=== PATIENT | female | born 1990 | race Caucasian/White ===

== ENCOUNTER 2016-12-18 12:02 | Emergency (ER) | payer OTHER ==
[~2016-12-18] VITALS: Ht 165.1 cm; Wt 77.4 kg
[~2016-12-18 12:02] MED LIST: FERR1TAB62 MT; PRENTAB26 PO
[2016-12-18 12:09] VITALS: TEMP 36.6; Ht 165.1 cm; Wt 77.4 kg
[2016-12-18 12:29] VITALS: O2SAT 100
[2016-12-18 12:44] LABS: BASO ABS # 0.07 K/uL (0-0.2); COMPLETE YES; EOS % 1.8 %; HEMATOCRIT 41.2 % (37-47); IG% 0.1 %; LYMPH % 35.8 %; LYMPH ABS # 2.45 K/uL (1.2-3.4); MEAN CORPUSCULAR HEMOGLOBIN 30.3 pg (25-34); MEAN CORPUSCULAR HGB CONC 34.5 g/dl (32-36); MEAN PLATELET VOLUME 11.5 fL (7.4-10.4); MONO % 6.6 %; NEUT % 54.7 %; PLATELET COUNT 241 K/uL (130-400); RED BLOOD COUNT 4.68 M/uL (4.2-5.4); WHITE BLOOD COUNT 6.84 K/uL (4.8-10.8)
[2016-12-18 12:55] LABS: BUN/CREATININE RATIO 11.2 (10-20); CALCIUM 9.4 mg/dl (8.5-10.1); CREATININE 0.83 mg/dl (0.60-1.20); POTASSIUM 3.7 mmol/L (3.5-5.1)
[2016-12-18 12:56] LABS: PARTIAL THROMBOPLASTIN RATIO 1.1; PROTHROMBIN TIME (PATIENT) 11.2 SECONDS (9.0-12.0)
[2016-12-18 13:06] LABS: THYROID STIMULATING HORMONE 1.58 uIu/ml (0.300-4.500)
[2016-12-18 13:07] LABS: URINE APPEARANCE CLEAR (CLEAR); URINE BILIRUBIN NEG (NEG); URINE COLOR YELLOW; URINE NITRITE NEG (NEG); URINE SPECIFIC GRAVITY 1.021 (1.000-1.030); UROBILINOGEN NEG (NEG)
[2016-12-18 13:11] LABS: MANUAL MICROSCOPIC REQUIRED? NO; REVIEW REQ? NO
[2016-12-18 13:36] LABS: BENZODIAZEPINE, URINE NEG (NEG); COCAINE,URINE NEG (NEG); PHENCYCLIDINE, URINE NEG (NEG)
--- NOTE | 2016-12-18 14:11 | DIAGNOSTIC IMAGING REPORT ---
CHEST 2 VIEWS ROUTINE CLINICAL HISTORY: sob eval for pnea dyspnea COMPARISON STUDY: 04/26/2014 FINDINGS: The bones soft tissues and hemidiaphragms are normal. The cardiomediastinal silhouette is normal. The lungs are clear. The pulmonary vasculature is normal. IMPRESSION: Negative chest. Electronically signed by: Jovan Lowery M.D. 12/18/2016 2:09 PM Dictated Date/Time: 12/18/2016 2:09 PM
[2016-12-18 14:30] VITALS: BP 121/74; PULSE 93; O2SAT 97
--- NOTE | 2016-12-18 18:19 | EMERGENCY ROOM VISIT NOTE ---
History Report prepared by Sukumar: Alireza Sullivan Under the Supervision of: Dr. Denny Escobar M.D. First contact with patient: 12:28 Chief Complaint: RAPID HEART RATE Stated Complaint: HEART FAST , SOB Nursing Triage Summary: pt reports intermittent chest racing. gets sob when it happens pt reports unable to catch breath. denies any past cardiac hx History of Present Illness The patient is a 26 year old female who presents to the Emergency Room with complaints of an intermittent fast heart rate that started yesterday. She says that she has episodes where her heart feels like it is racing, and then it will stop, and she will feel almost like her heart stops for a little bit. At that moment she feels short of breath. Currently, she says that she feels like her heart rate is a little fast. During the episodes, she feels a bit of brief chest discomfort, which she describes as a tightness. The patient denies any fevers, cold symptoms, abdominal pain, vomiting, diarrhea, leg pain, or leg swelling. She is not on control, and she has not had any recent long trips. The patient denies any chance of . She has no history of clots in her lungs or legs. The patient denies any thyroid issues, and has not had any recent unintentional weight loss or thinning of her hair. 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 Source of History: patient Onset: Yesterday Position: other (heart) Quality: other (feels like heart is racing) Timing: intermittent, other Associated Symptoms: + SOB (intermittent), No abdominal pain, No diarrhea, No fevers, No vomiting Note: Associated symptoms: Intermittent chest tightness. Denies cold symptoms, leg pain, leg swelling. Review of Systems See HPI for pertinent positives & negatives. A total of 10 systems reviewed and were otherwise negative. Past Medical & Surgical Medical Problems: (1) No chronic problems (2) Tuberculosis Family History Cancer Diabetes mellitus Heart disease Hypertension Lung disease Social History Smoking Status: Never Smoker Smokeless Tobacco Use: No Alcohol Use: occasionally Marital Status: in relationship Housing Status: lives with family Occupation Status: employed Current/Historical Medications No Active Prescriptions or Reported Meds Allergies Coded Allergies: Amoxicillin (Verified Allergy, Unknown, HIVES, 12/18/16) Sulfa Drugs (Verified Allergy, Unknown, HIVES, 12/18/16) Physical Exam Vital Signs Date Time Temp Pulse Resp B/P Pulse Ox O2 Delivery O2 Flow Rate FiO2 12/18/16 14:30 93 16 121/74 97 Room Air 12/18/16 13:47 99 18 114/80 100 Room Air 12/18/16 12:30 114 12/18/16 12:29 100 Room Air 12/18/16 12:09 36.6 124 20 163/114 98 Room Air Physical Exam Constitutional: Vital signs reviewed. Eyes: Pupils are equal round reactive to light. Conjunctiva are noninjected. ENT: Pharynx is clear without erythema or exudate. Mucous membranes are moist. Neck supple without meningeal signs. No thyromegaly. Respiratory: Clear to auscultation bilaterally. Breath sounds are equal bilaterally. Cardiovascular: Tachycardic heart rate at 131, regular rhythm. No rubs or gallops. GI: Soft, nondistended and nontender. Bowel sounds are present. Musculoskeletal: No peripheral edema. No lower extremity tenderness. Integumentary: No cyanosis. Neurological: The patient is awake and alert. No focal deficits. Psychiatric: Normal affect. Medical Decision & Procedures ER Provider Diagnostic Interpretation: X-ray results as stated below per interpretation by me and the radiologist: CHEST 2 VIEWS ROUTINE CLINICAL HISTORY: sob eval for pnea dyspnea COMPARISON STUDY: 04/26/2014 FINDINGS: The bones soft tissues and hemidiaphragms are normal. The cardiomediastinal silhouette is normal. The lungs are clear. The pulmonary vasculature is normal. IMPRESSION: Negative chest. Electronically signed by: Jovan Lowery M.D. 12/18/2016 2:09 PM Dictated Date/Time: 12/18/2016 2:09 PM Laboratory Results 12/18/16 12:25 Red Blood Count 4.68, Mean Corpuscular Volume 88.0, Mean Corpuscular Hemoglobin 30.3, Mean Corpuscular Hemoglobin Concent 34.5, Mean Platelet Volume 11.5, Neutrophils (%) (Auto) 54.7, Lymphocytes (%) (Auto) 35.8, Monocytes (%) (Auto) 6.6, Eosinophils (%) (Auto) 1.8, Basophils (%) (Auto) 1.0, Neutrophils # (Auto) 3.74, Lymphocytes # (Auto) 2.45, Monocytes # (Auto) 0.45, Eosinophils # (Auto) 0.12, Basophils # (Auto) 0.07 12/18/16 12:25 Test 12/18/16 12:25 12/18/16 12:43 12/18/16 12:50 White Blood Count 6.84 K/uL (4.8-10.8) Red Blood Count 4.68 M/uL (4.2-5.4) Hemoglobin 14.2 g/dL (12.0-16.0) Hematocrit 41.2 % (37-47) Mean Corpuscular Volume 88.0 fL (80-100) Mean Corpuscular Hemoglobin 30.3 pg (25-34) Mean Corpuscular Hemoglobin Concent 34.5 g/dl (32-36) Platelet Count 241 K/uL (130-400) Mean Platelet Volume 11.5 fL (7.4-10.4) Neutrophils (%) (Auto) 54.7 % Lymphocytes (%) (Auto) 35.8 % Monocytes (%) (Auto) 6.6 % Eosinophils (%) (Auto) 1.8 % Basophils (%) (Auto) 1.0 % Neutrophils # (Auto) 3.74 K/uL (1.4-6.5) Lymphocytes # (Auto) 2.45 K/uL (1.2-3.4) Monocytes # (Auto) 0.45 K/uL (0.11-0.59) Eosinophils # (Auto) 0.12 K/uL (0-0.5) Basophils # (Auto) 0.07 K/uL (0-0.2) RDW Standard Deviation 42.2 fL (36.4-46.3) RDW Coefficient of Variation 13.1 % (11.5-14.5) Immature Granulocyte % (Auto) 0.1 % Immature Granulocyte # (Auto) 0.01 K/uL (0.00-0.02) Prothrombin Time 11.2 SECONDS (9.0-12.0) Prothromb Time International Ratio 1.0 (0.9-1.1) Activated Partial Thromboplast Time 27.6 SECONDS (21.0-31.0) Partial Thromboplastin Ratio 1.1 Anion Gap 8.0 mmol/L (3-11) Est Creatinine Clear Calc Drug Dose 107.5 ml/min Estimated GFR () 114.4 Estimated GFR (Non- 98.7 BUN/Creatinine Ratio 11.2 (10-20) Calcium Level 9.4 mg/dl (8.5-10.1) Thyroid Stimulating Hormone (TSH) 1.580 uIu/ml (0.300-4.500) Free Thyroxine 1.32 ng/dl (0.80-1.60) Bedside D-Dimer 335 ng/mlFEU (0-450) Bedside Troponin I 0.000 ng/ml (0-0.045) Urine Color YELLOW Urine Appearance CLEAR (CLEAR) Urine pH 5.0 (4.5-7.5) Urine Specific [place] 1.021 (1.000-1.030) Urine Protein NEG (NEG) Urine Glucose (UA) NEG (NEG) Urine Ketones NEG (NEG) Urine Occult Blood 1+ (NEG) Urine Nitrite NEG (NEG) Urine Bilirubin NEG (NEG) Urine Urobilinogen NEG (NEG) Urine Leukocyte Esterase NEG (NEG) Urine WBC (Auto) 1-5 /hpf (0-5) Urine RBC (Auto) 0-4 /hpf (0-4) Urine Hyaline Casts (Auto) 1-5 /lpf (0-5) Urine Epithelial Cells (Auto) 10-20 /lpf (0-5) Urine Bacteria (Auto) NEG (NEG) Urine Test NEG (NEG) Urine Opiates Screen NEG (NEG) Urine Methadone, Qualitative NEG (NEG) Urine Barbiturates NEG (NEG) Urine Phencyclidine (PCP) Level NEG (NEG) Ur Amphetamine/Methamphetamine NEG (NEG) MDMA (Ecstasy) Screen NEG (NEG) Urine Benzodiazepines Screen NEG (NEG) Urine Cocaine Metabolite NEG (NEG) Urine Marijuana (THC) NEG (NEG) Laboratory results as reviewed by me. ECG Indication: SOB/dyspnea Rate (beats per minute): 131 Rhythm: sinus tachycardia Findings: no ectopy, other (no ST elevations) ED Course 1230: The patient was evaluated in room B6. A complete history and physical exam was performed. 1437: I reevaluated the patient and reviewed the test results with her. I explained to her that because she has no risk factors and had a low risk for a pulmonary embolus with a negative D-dimer, I did not feel that a CT scan was indicated. The patient's heart rate is in the 90sa and she is asymptomatic. I recommended follow-up with a doctor next week for a possible echocardiogram and event monitor. The patient verbally expressed understanding and agreement of the treatment plan. The patient will be discharged. Medical Decision This is a 26-year-old female who presents with palpitations with some mild chest discomfort and shortness of breath. Differential diagnosis metabolic derangement, hyperthyroidism, electrolyte abnormality, dysrhythmia, pulmonary embolism. I did perform a limited focused review of portions of the patient's old chart on the electronic medical record. The patient has had no recent pertinent visits to this hospital. I did evaluate the patient as noted above. The patient has had several intermittent episodes of tachycardia since last night. They are associated with brief episodes of shortness of breath and some chest tightness. Currently she feels a little bit tachycardic but denies any chest pain or shortness of breath. IV access was established. The patient was placed on a continuous child monitor. I did order and personally review the patient's 12-lead EKG and chest x-ray as described above. Her twelve-lead EKG shows sinus tachycardia but is otherwise unremarkable. Her chest x-ray is unremarkable as well. I did order and review the patient's blood work as noted in the electronic medical record. Electrolytes and TFTs are unremarkable. I did Reassess the patient. She is asymptomatic at this time. Her heart rate is normal. I did discuss the test results with the patient and recommended further outpatient workup including possible event monitor and echocardiogram. The patient was discharged in good condition and told to return for any worsening symptoms as well as avoid any caffeine or stimulants. Impression Primary Impression: Tachycardia Scribe Attestation The scribe's documentation has been prepared under my direct and personally reviewed by me in its entirety. I confirm that the note above accurately reflects all work, treatment, procedures, and medical decision making performed by me. Departure Information Dispostion Home / Self-Care Prescriptions No Active Prescriptions or Reported Meds Referrals No Doctor, Assigned (PCP) Forms HOME CARE DOCUMENTATION FORM, IMPORTANT VISIT INFORMATION, WORK / SCHOOL INSTRUCTIONS Patient Instructions ED Palpitations, My [facility] Additional Instructions You have been examined and treated today on an emergency basis only. This is not a substitute for, or an effort to provide, complete comprehensive medical care. It is impossible to recognize and treat all injuries or illnesses in a single emergency department visit. It is therefore important that you follow up closely with your physician. Call as soon as possible for an appointment. Your doctor may consider a Holter monitor or echocardiogram for further workup. Return for worsening symptoms or if you develop fever, vomiting, chest pain or any other concerning symptoms. Avoid caffeine or other stimulants.
[2017-02-16] MEDS ORDERED: CATALYST PO (07:38)
[2017-02-16] MEDS ORDERED: [UNRECOGNIZED DRUG - OTHER] PO (07:38)
[2017-02-16] MEDS ORDERED: LPR50X PO (07:38)
[2017-02-16] MEDS ORDERED: METO25TA3 PO ×2 (08:09→09:18)
== END 2016-12-18 14:46 | disposition home or self-care (01) ==
LOC: C.EDB 12:03
DX: R00.0 Tachycardia, unspecified (principal); Z83.3 Family history of diabetes mellitus; Z82.49 Family history of ischemic heart disease and other diseases of the circulatory system

== ENCOUNTER → 2017-02-16 | Outpatient (CLI) | payer OTHER ==
[~2017-02-16] VITALS: Ht 165.1 cm; Wt 72.0 kg
[2017-02-16] VITALS (10 sets, daily range): BP systolic 118–143; BP diastolic 59–76; PULSE 77–102; TEMP 36.8; O2SAT 98–100; Ht 165.1 cm; Wt 72.0 kg
[~2017-02-16] MED LIST changes: +BENZOCAIN/TETRACA/BUTAM SPRAY 200 APPLN/20 GM SPRY ONE; +CANNULA ONE; +CATALYST PO; +FENTANYL CITRATE INJ 50 MCG/1 ML 2 ML VIAL ONE; -FERR1TAB62 MT; +LPR50X PO; +METO25TA3 PO; +MIDAZOLAM HCL 1 MG/ML 2ML VIAL ONE; -PRENTAB26 PO; +[UNRECOGNIZED DRUG - OTHER] PO
--- NOTE | 2017-02-16 08:30 | Procedure Note ---
Pre-Mod Sedation Assessment General Date of Moderate Sedation: Feb 16, 2017. Vital Signs: Vital Signs Past 12 Hours Date Time Temp Pulse Resp B/P (MAP) Pulse Ox O2 Delivery O2 Flow Rate FiO2 02/16/17 07:41 36.8 93 16 122/76 98 Room Air Review Cardiovascular: regular rate, rhythm Abdomen: non tender, soft Lungs: lungs clear Pre-Sedation Airway Assessment Oral Cavity: WNL Short Thick Neck: No Hx of Sleep Apnea: No Smoking Status: Never Smoker Procedure Planning Contraindications-for Mod Sed: None Yes Notes The planned sedation has been discussed with the patient and consent obtained. I have identified the patient, determined the appropriateness of sedation and have assessed the patient immediately prior to the procedure. All medicine(s) and interventions are by my order.
--- NOTE | 2017-02-16 08:53 | HISTORY & PHYSICAL EXAMINATION ---
DATE OF ADMISSION: 02/16/2017 TIME: 8:26 a.m. CHIEF COMPLAINTS: Here for transesophageal echo. HISTORY OF PRESENT ILLNESS: Ms. Barrett is a very pleasant 26-year-old female who is here today for transesophageal echo. She presented to the outpatient office on 01/01/2017 for sinus tachycardia, and near syncope. She had an echocardiogram done on 01/14/2017 which demonstrated normal LV systolic function. 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 There was trace aortic regurgitation. To have a closer evaluation of this finding, a transesophageal echo was ordered. From a sinus tachycardia standpoint. Her symptoms are much better controlled on metoprolol succinate 50 mg daily. She still has symptoms occasionally with near syncope lasting only a few seconds. Her heart rate at home is mostly 80s-90s. She has been consistently in the 90s and the lower 100s while awaiting today's test. She has not missed a dose of her medication. REVIEW OF SYSTEMS: As above. PAST MEDICAL HISTORY: 1. Sinus tachycardia. 2. History of tuberculosis status post treatment. HOME MEDICATIONS: Include: Metoprolol succinate 50 mg daily. ALLERGIES: SULFA AND AMOXICILLIN. SOCIAL HISTORY: No tobacco, alcohol or drug abuse. She has 1 daughter. Her friend Dana accompanies her today and is her ride home. PHYSICAL EXAMINATION: VITAL SIGNS: Heart rate mostly 90s to low 100s, currently in 80s, oxygen saturation 100%, blood pressure 125/62 mmHg. GENERAL: No acute distress. She is alert and oriented. NECK: No JVD. CARDIAC: No ventricular heave. Regular, normal S1, S2. No audible murmurs, rubs or gallops. LUNGS: Clear to auscultation bilaterally without wheezes, rales or rhonchi. ABDOMEN: Soft, nontender, nondistended. Normoactive bowel sounds. EXTREMITIES: No cyanosis or edema. PSYCHIATRIC: Affect appears appropriate. ASSESSMENT AND PLAN: 1. 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 2. Sinus tachycardia with near syncope: We will likely increase metoprolol succinate to 75 mg daily as she has noted improvement with escalating doses of metoprolol, but continues to have symptoms periodically. 3. Disposition: She will be discharged home following transesophageal echo. Her friend Dana will drive her home.
--- NOTE | 2017-02-16 09:17 | Procedure Note ---
Post-Mod Sedation Assessment General Date of Moderate Sedation Feb 16, 2017. Vital Signs: Vital Signs Past 12 Hours Date Time Temp Pulse Resp B/P (MAP) Pulse Ox O2 Delivery O2 Flow Rate FiO2 02/16/17 09:09 84 14 130/61 (84) 98 Room Air 02/16/17 08:58 110 11 133/92 (106) 100 Nasal Cannula 2 02/16/17 07:41 36.8 93 16 122/76 98 Room Air Review - Discharge Criteria Vital Signs Stable: Yes Alert/Oriented/Conversant: Yes Returned to Baseline Mental St: Yes Nausea Absent/Minimal: Yes Pain/Discomfort/Absent/Minimal: Yes Normal/Baseline Respirations: Yes Active Bleeding?: No
--- NOTE | 2017-02-16 09:19 | Discharge Instructions ---
Discharge Instructions Date of Service Feb 16, 2017. Visit Reason for Visit: Aortic Valve Disease Discharge Discharge Diagnosis / Problem: No significant valvular abnormalities. Sinus tachycardia. Discharge Goals Goal(s): Diagnostic testing Activity Recommendations Activity Limitations: per Instructions/Follow-up section Anesthesia . Post Anesthesia Instructions: If you have had General Anesthesia or IV Sedation: * Do not drive today. * Resume driving when surgeon permits. * Do not make important decisions or sign legal documents today. * Call surgeon for: 1. Temperature elevations greater than 101 degrees F. 2. Uncontrollable pain. 3. Excessive bleeding. 4. Persistent nausea and vomiting. 5. Medication intolerance (nausea, vomiting or rash). * For nausea and vomiting use only clear liquids such as: tea, soda, bouillon until nausea subsides, then gradually increase diet as tolerated. * If you have any concerns or questions, call your surgeon's office. If physician is unavailable and it is an emergency, call 911 or go to the nearest emergency room. . Instructions / Follow-Up Instructions / Follow-Up ACTIVITY RECOMMENDATIONS: Resume activities as tolerated with no limitations unless specified. __ No lifting over _10_ pounds for 24 hours. __ Do not engage in vigorous exercise, sexual activity, or sports for 24 hours. __ Do not drive or operate any motorized equipment for 24 hours. __ You may return to work/school tomorrow. __ Nothing to eat or drink until gag reflex returns. __ No HOT or WARM liquids for _8_ hours. __ Avoid "scratchy" foods such as potato chips or pretzels for 24 hours following procedure. SPECIAL CARE: If you experience coughing up or vomiting of blood, contact 911 Diet Recommendations Recommended Home Diet: resume previous diet Procedures Procedures Performed: Transesophageal echocardiogram. Pending Studies Studies pending at discharge: no Medical Emergencies . Who to Call and When: Medical Emergencies: If at any time you feel your situation is an emergency, please call 911 immediately. . Non-Emergent Contact Non-Emergency issues call your: Primary Care Provider, Paint Supervisor . . "Provider Documentation" section prepared by Tej Harry. .
--- NOTE | 2017-02-16 09:21 | Cardiology Procedure Brief Nt ---
Preliminary Cardiology Note Procedure Date Feb 16, 2017. Pre-Procedure Diagnosis Aortic valve disorder Post-Procedure Diagnosis No significant aortic valve pathology. Sinus tachycardia. Procedure(s) Performed LUÍS Car Repair Supervisor Edilson Triple Valve Tester(s) Aide Castellanos Estimated Blood Loss none Preliminary Findings No significant valvular abnormalities. Recommendations Continue to follow up with cardiology as scheduled. Titrate metoprolol for symptomatic sinus tachycardia. Specimens none Disposition
--- NOTE | 2017-02-16 10:31 | TEE ---
*NOTICE TO RECEIVING LIBERTARIAN AGENCY This information is strictly Confidential and protected under [place] law. [place] law prohibits you from making any further disclosure of this information unless further disclosure is expressly permitted by the written consent of the person to whom it pertains or is authorized by law. A general authorization for the release of medical or other information is not sufficient for this purpose. Hospital accepts no responsibility if the information is made available to any other person, INCLUDING THE PATIENT. Interpretation Summary * Name: RO CHAAVRRIA Study Date: 02/16/2017 07:24 AM BP: 133/92 mmHg * Patient Location: [facility] HR: 92 * : 1990 (M/d/yyyy) Gender: Female Height: 65 in * Age: 26 yrs Ethnicity: [place] Weight: 160 lb * Ordering Physician: Tej Waggoner MD * Performed By: Aide Castellanos * * Reason For Study: AORTIC VALVE DISEASE * BSA: 1.8 m2 * Sedation start time cath 8:26 a.m.. * Patient and time at 8:57 a.m.. I * -- Conclusions -- * LUÍS: * 1. Normal left ventricular size and systolic function. EF 55-60%. No regional wall motion abnormalities. No left ventricular hypertrophy. * 2. No significant valvular abnormalities. * 3. No visualized ASD or PFO. * 4. Patient tolerated procedure well without known complication. Procedure Details * The transesophageal portion of this study was personally supervised by the undersigned interpreting physician. * LUÍS Probe #2 utilized for procedure. * The study was performed in Cardiopulmonary Department. * Time out was conducted by the physician, nurse, and telemetry technician with positive identification of patient and procedure. * Informed consent for Transesophageal Echocardiogram was obtained prior to the procedure. * An intravenous line was placed. A topical anesthetic agent was used for oropharangeal anesthesia. A bite block was inserted. * The patient's vital signs, including blood pressure, heart rate, pulse oximetry and cardiac rhythm were monitored throughout the procedure . * Midazolam 4 mg administered for sedation. * Fentanyl 100 mcg was administered for procedural sedation. * The posterior oropharynx was anesthetized using a topical anesthetic spray. A bite guard was inserted. * A multifrequency, multiplane transesopheageal echocardiographic endoscope was inserted and manipulated in the standard fashion to achieve multiplane views. * The transesophageal probe was passed without difficulty. * The usual views were obtained; basal, mid-esophageal, transgastric and aortic views. * The patient tolerated the procedure well without evidence of orophangeal or esophageal trauma. * A 2D transesophageal echocardiogram with spectral and color flow Doppler was performed. * Contrast injection with agitated saline was performed. * A 2D transesophageal echocardiogram was performed. * A 2D transesophageal echocardiogram with color flow Doppler was performed. * A 2D transesophageal echocardiogram with Doppler and color flow Doppler was performed. Left Ventricle * Normal left ventricular size and systolic function. EF 55-60%. No regional wall motion abnormalities. No left ventricular hypertrophy. Right Ventricle * The right ventricle is normal in size and function. Atria * The left atrial size is normal. * No thrombus is detected in the left atrial appendage. * Right atrial size is normal. * No visualized ASD or PFO via 2D imaging or color Doppler. There is no evidence of right to left inter atrial shunt following agitated saline injection. Mitral Valve * The mitral valve is normal in structure and function. * There is no mitral valve stenosis. * There is trace mitral regurgitation. Tricuspid Valve * The tricuspid valve is normal in structure and function. * There is no tricuspid stenosis. * There is trace tricuspid regurgitation. Aortic Valve * The aortic valve is trileaflet. * The aortic valve is normal in structure and function. * The aortic valve opens well. * No aortic regurgitation is present. Pulmonic Valve * The pulmonary valve is inadequately visualized, but the Doppler data is adequate for interpretation. * There is no significant pulmonary regurgitation. Great Vessels * The aortic root is normal size. * Ascending aorta of normal dimension * No significant atherosclerosis noted in thoracic aorta. * Normal pulmonary venous flow pattern. Normal affect venous flow pattern. IVC normal in size. Pericardium * There is no pericardial effusion. MMode 2D Measurements and Calculations LVIDd 4.6 cm LVIDs 3.3 cm FS 29.3 % EDV(Teich) 99.0 ml ESV(Teich) 43.3 ml EF(Teich) 56.3 % EDV(cubed) 99.4 ml ESV(cubed) 35.1 ml EF(cubed) 64.7 % SV(Teich) 55.7 ml SI(Teich) 30.9 ml/m\S\2 SV(cubed) 64.3 ml SI(cubed) 35.8 ml/m\S\2 Ao root diam 3.1 cm Ao root area 7.7 cm\S\2 asc Aorta Diam 2.7 cm Doppler Measurements and Calculations MV E max almas 79.4 cm/sec MV A max almas 66.6 cm/sec MV E/A 1.2 MV dec time 0.17 sec TR max almas 166.8 cm/sec RVSP(TR) 14.1 mmHg RAP systole 3.0 mmHg
== END | disposition home or self-care (01) ==
LOC: C.CPL 06:42
PROVIDERS: ATTEND Internal Medicine Cardiovascular Disease
DX: R00.0 Tachycardia, unspecified (principal); R55 Syncope and collapse; R06.02 Shortness of breath

== ENCOUNTER → 2017-03-03 | Outpatient (CLI) | payer OTHER ==
[~2017-03-03] MED LIST changes: -BENZOCAIN/TETRACA/BUTAM SPRAY 200 APPLN/20 GM SPRY ONE; -CANNULA ONE; -FENTANYL CITRATE INJ 50 MCG/1 ML 2 ML VIAL ONE; -LPR50X PO; -MIDAZOLAM HCL 1 MG/ML 2ML VIAL ONE
== END | disposition home or self-care (01) ==
LOC: C.LAB1850 13:47
PROVIDERS: ATTEND Physician Assistant
DX: R00.0 Tachycardia, unspecified (principal)

== ENCOUNTER 2022-10-02 13:31 | Inpatient (IN) ==
[2022-10-02] MEDS ORDERED: OXYTOCIN 30 UNITS/500 ML BAG IV PRN ×2 (14:39)
[2022-10-02] MEDS ORDERED: LIDOCAINE 1% LOCAL 20 ML VIAL INFIL PRN (14:39)
[2022-10-02] MEDS ORDERED: LACTATED RINGER'S 1,000 ML IV PRN (14:39)
[2022-10-02] MEDS ORDERED: ceFAZolin 2000MG 2,000 MG/15 ML SYR IV STA (14:45)
[2022-10-02 15:12] LABS: Hematocrit (blood only) 37.7 % (37.0-47.0); Hemoglobin 12.7 g/dl (12.0-16.0); Mean Corpuscular Hemoglobin 30.8 pg (25.0-34.0); Mean Corpuscular Hgb Conc 33.7 g/dL (32.0-36.0); Mean Corpuscular Volume 91.3 fL (80.0-100.0); Mean Platelet Volume 12.2 fL (9.4-12.4); Platelet Count 177 K/uL (130-400); RDW Coefficient of Variation 13.7 % (11.5-14.5); RDW Standard Deviation 45.6 fL (36.4-46.3); Red Blood Count 4.13 M/uL (4.20-5.40); White Blood Count 10.05 K/ul (4.8-10.8)
[2022-10-02] MEDS ORDERED: BUPIVACAINE 0.25% 30 ML VIAL ONE (19:41)
[2022-10-02] MEDS ORDERED: LIDOCAINE 2%/EPINEPHRINE 1:200,000 20 ML SDV ONE (19:41)
[2022-10-02] MEDS ORDERED: ePHEDrine sulfate 50 MG/ML AMP ONE (19:41)
[2022-10-02] MEDS ORDERED: SODIUM CHLORIDE 0.9% INJ 10 ML VIAL ONE (19:41)
[2022-10-02] MEDS ORDERED: fentaNYL citrate 100 MCG/2 ML VIAL ONE (19:41)
[2022-10-02] MEDS ORDERED: fentaNYL 2MCG/ML ROPIVACAINE 1.25MG/ML 100 ML BAG EPI ONE (19:42)
[2022-10-02] MEDS ORDERED: diphenhydrAMINE 50 MG/ML VIAL IV PRN (19:42)
[2022-10-02] MEDS ORDERED: fentaNYL 2MCG/ML ROPIVACAINE 1.25MG/ML 100 ML BAG EPI PRN (19:42)
[2022-10-02] MEDS ORDERED: NALOXONE HCL 0.4 MG/1 ML VIAL/CARP IV PRN (19:42)
[2022-10-02] MEDS ORDERED: NALBUPHINE HCL INJ 10 MG/ML AMP IV PRN (19:42)
[2022-10-02] MEDS ORDERED: ePHEDrine sulfate 50 MG/ML AMP IV PRN (19:42)
[2022-10-02] MEDS ORDERED: ONDANSETRON INJ 2 MG/ML 2 ML VIAL IV PRN (19:42)
[2022-10-02] MEDS ORDERED: NALOXONE HCL 1 MG in SODIUM CHLORIDE 0.9% 1000ML 1,000 ML IV PRN (19:42)
--- NOTE | 2022-10-02 19:43 | Anesthesiology Consultation ---
Date of Service October 02, 2022 Assessment & Plan (1) Encounter for pre-operative examination: Chart Review Chart Review: Patient NOT seen in Pre Admission Testing and Acceptable Risk for Labor Epidural Consults Requested none History Height/Weight Height: 5 ft 5 in Weight: 115.666 kg Allergies Allergy/AdvReac Type Severity Reaction Status Date / Time amoxicillin Allergy Unknown HIVES Verified 10/02/22 11:01 Sulfa (Sulfonamide Allergy Unknown HIVES Verified 10/02/22 11:01 Antibiotics) Medications Home Medications Medication Instructions Recorded Confirmed Last Taken prenat.vits,michelle,rlh-[id number]-[id number] 1 tab PO DAILY 02/18/22 10/02/22 10/02/22 08:00 metoprolol succinate 100 mg 100 mg PO DAILY tachycardia 10/02/22 10/02/22 10/02/22 06:00 tablet,extended release 24 hr Active Medications Generic Name Dose Route Start Last Admin Trade Name Freq PRN Reason Stop Dose Admin Oxytocin 30 units in 500 mls @ 5 mls/hr 10/02/22 14:39 10/02/22 19:12 Pitocin IV 10/04/22 14:38 0.3 units/hr .Q24H PRN 5 mls/hr Labor Induction/Augmentation Titration Protocol 0.3 UNITS/HR Lactated Ringer's 1,000 mls @ 125 mls/hr 10/02/22 14:39 10/02/22 17:23 Lr IV 10/04/22 14:38 125 mls/hr .Q8H PRN Administration L&D Protocol Protocol Past Medical History Medical History Atypical chest pain Encounter for other general counseling and advice on contraception History of chicken pox Inappropriate sinus tachycardia Near syncope Tachycardia Tuberculosis Exercise / Class Metabolic Activity II 4-5 Yardwork/Stairs/Walk up hill Past Family History Family History Grandmother (Paternal) Lung cancer Grandfather (Paternal) Myocardial infarction Stroke Diabetes Father Diabetes Hypertension Grandfather (Maternal) Heart disease Denies family history of Ovarian cancer Prostate cancer Breast cancer Colorectal cancer Past Surgical History Surgical History No significant past surgical history Past Anesthesia History No Hx of Anesthesia Complications and No Family Hx of Anesthesia Complications History of PONV No Hx of PONV and No Hx of Motion Sickness Social History Smoking Status: Never smoker Hx Alcohol Use: No Hx Substance Use: No substance use type: does not use Physical Exam Vital Signs Last Vital Signs Temp 36.7 C 10/02/22 19:12 Pulse 109 H 10/02/22 20:14 Resp 18 10/02/22 19:12 BP 134/91 10/02/22 20:14 Pulse Ox 98 10/02/22 20:14 Testing Laboratory Results 10/02/22 14:54 Blood Type O Negative 10/02/22 14:54 Antibody Screen NEGATIVE 10/02/22 14:54
[2022-10-02] MEDS ORDERED: ceFAZolin 1000MG 1,000 MG/7.5 ML SYR IV PRN (22:00)
--- NOTE | 2022-10-02 23:09 | Delivery Summary ---
Vaginal Delivery Summary Date of Service October 02, 2022 Vaginal Delivery Summary [facility] Vaginal Delivery Summary: Pre-delivery diagnoses: 31yo @ 38 5/7, PROM, tachycardia, Rh neg, GBS+ Post-delivery diagnoses: same Procedure: spontaneous vaginal delivery, repair of regan-urethral laceration Surgeon: Cheri Reyes DO Complications: none Findings: Viable male . Apgars: 9/9 . Weight pending, please see nursery records Estimated blood loss: 300ml Description of delivery: The patient progressed to complete with epidural anesthesia. She then began to push. She spontaneously vaginally delivered a viable from the cephalic presentation. The head delivered in CHRISTA position. The anterior shoulder delivered, followed by the posterior shoulder, followed by the body. The baby was placed on mother's abdomen and a spontaneous cry was heard. Delayed cord clamping was employed, and the cord was doubly clamped and cut. Cord blood was obtained. The placenta was delivered spontaneously intact with a 3-vessel cord. The uterus and vagina were swept of clots and debris. IV pitocin was given. The uterus became firm. The cervix, vagina, and perineum were inspected. Bilateral periurethral lacerations were noted, the right laceration was bleeding and therefore was repaired with a running stitch of 3-0 Vicryl. The left laceration was hemostatic, patient was offered either repair or to let it heal on its own - she elected to let it heal naturally. Red rubber catheter passed easily. Excellent hemostasis was observed. The mother and baby are recovering in stable and good condition in the room. Sponge, needle and instrument counts were correct x 2. Cheri Reyes DO [facility] [place] Vaginal Delivery Charge Vaginal Delivery Codes: 45970 global code for the antepartum, delivery, and post- Delivery Type Details: [facility]
--- NOTE | 2022-10-02 23:35 | Anesthesia Procedure Note ---
Date of Service October 02, 2022 Anesthesia Post Epidural Note Vital Signs Vital Signs: Temp Pulse Resp BP Pulse Ox 36.8 C 100 H 18 120/69 91 10/02/22 20:20 10/02/22 23:29 10/02/22 21:57 10/02/22 23:29 10/02/22 22:30 Notes Mental Status: alert / awake / arousable, participated in evaluation and see notes below Patient Amnestic to Procedure: No Nausea / Vomiting: adequately controlled Pain: adequately controlled Airway Patency, RR, SpO2: stable & adequate BP & HR: stable & adequate Hydration State: stable & adequate Neuraxial Anesthesia: was administered and sensory block is resolving Anesthetic Complications: no major complications apparent and Pt Satisfied with anesthetic care Epidural: Removed without complications and With tip intact
[2022-10-03] MEDS ORDERED: oxyCODONE/ACETAMINOPHEN 5mg/325mg TAB PO PRN (00:11)
[2022-10-03] MEDS ORDERED: ACETAMINOPHEN 325 MG TAB PO PRN (00:11)
[2022-10-03] MEDS ORDERED: DIPHTHERIA/TETANUS/PERTUSSIS 0.5mL SYR/VIAL (Age 7+yrs) IM ONE (00:11)
[2022-10-03] MEDS ORDERED: BENZOCAINE 20% AER SPR 82.5 GM CAN EXT PRN (00:11)
[2022-10-03] MEDS ORDERED: OXYTOCIN 30 UNITS/500 ML BAG IV PRN (00:11)
[2022-10-03] MEDS ORDERED: HYDROCORTISONE ACETATE 25 MG SUPP PR PRN (00:11)
[2022-10-03] MEDS: IBUPROFEN 600 MG TAB PO PRN ×5 (02:22→20:20)
[2022-10-03 07:05] LABS: Hematocrit (blood only) 35.2 % (37.0-47.0); Hemoglobin 11.8 g/dl (12.0-16.0)
[2022-10-03] MEDS: PRENATAL VITAMIN 1 TAB PO SCH (08:15)
[2022-10-03] MEDS: DOCUSATE SODIUM 100 MG CAP PO SCH ×2 (08:15→20:20)
[2022-10-03] MEDS: METOPROLOL SUCC 50MG EXT REL TAB PO SCH (08:16)
[2022-10-03] MEDS ORDERED: METOPROLOL SUCC 50MG EXT REL TAB PO SCH (09:00)
--- NOTE | 2022-10-03 09:38 | Obstetrical Progress Note ---
Date of Service October 03, 2022 Assessment & Plan (1) Encounter for supervision of normal in multigravida: PPD#1 doing well, no concerns. Anticipate DC home tomorrow. Subjective Ambulation: ambulating normally Voiding: no voiding problems Diet Tolerance:: regular diet Lochia:: Moderate Review of Systems All systems reviewed & are unremarkable except as noted in HPI & below Physical Exam Constitutional WD/WN, vitals as above no acute distress Respiratory normal respiratory effort Cardiovascular Rate/Rhythm: regular rate and regular rhythm Gastrointestinal (Abdomen) Inspection/Auscultation: abdomen normal to inspection; abdomen not distended Percussion/Palpation: abdomen soft Genitourinary OB Exam Abdomen: + fundal height Fundus: + firm; not tender Results & Data ([facility]) Vital Signs (Past 12 Hours) Vital Signs Temp Pulse Resp BP BP Pulse Ox 10/03/22 02:51 36.4 C L 20 138/72 10/03/22 01:00 18 10/03/22 00:30 18 10/03/22 00:00 18 10/02/22 23:45 18 10/02/22 23:30 18 10/02/22 23:15 18 10/02/22 23:00 37.1 C 18 10/03/22 00:00 98 H 124/72 10/02/22 22:00 37.1 C 10/03/22 00:44 95 H 123/60 10/03/22 00:29 95 H 123/65 10/03/22 00:14 102 H 128/72 10/02/22 23:59 95 H 121/68 10/02/22 23:44 95 H 122/70 10/02/22 23:29 100 H 120/69 10/02/22 23:15 106 H 119/61 10/02/22 22:59 92 H 147/68 H 10/02/22 22:55 107 H 136/79 10/02/22 22:29 135 H 20 99 10/02/22 22:30 144 H 91 10/02/22 22:24 132 H 100 10/02/22 22:19 101 H 99 10/02/22 22:14 84 97 10/02/22 22:11 88 113/64 10/02/22 22:09 82 97 10/02/22 22:04 82 97 01/27/23 21:59 85 96 10/02/22 21:57 18 10/02/22 21:57 84 18 116/68 10/02/22 21:54 95 H 97 10/02/22 21:49 97 H 97 10/02/22 21:44 87 97 10/02/22 21:41 90 118/67 10/02/22 21:39 86 98
[2022-10-03] MEDS ORDERED: bisacodyL 5 MG TABEC PO SCH (20:00)
[2022-10-04] MEDS ORDERED: bisacodyL 10 MG SUPP PR PRN
[2022-10-04] MEDS: IBUPROFEN 600 MG TAB PO PRN ×2 (00:14→09:09)
--- NOTE | 2022-10-04 07:29 | Obstetrical Progress Note ---
Date of Service October 04, 2022 Assessment & Plan (1) Encounter for supervision of normal in multigravida: 31 yo PP2 from , doing well -Meeting all pp milestones -Rh neg/rubella immune/ - s/p rhogam -f/u 6 weeks for appt, stable for d/c home today Subjective Ambulation: ambulating normally Voiding: no voiding problems Passing Gas:: Yes Diet Tolerance:: regular diet Lochia:: Small Feeding Type:: breast feeding Pain well managed with medication Review of Systems Denies fevers, chills, n/v, PALMA, CP, SOB Physical Exam Constitutional WD/WN, vitals as above no acute distress Respiratory normal respiratory effort, lungs clear to auscultation Cardiovascular RRR, no murmur, no edema Gastrointestinal (Abdomen) Percussion/Palpation: abdomen soft; abdomen nontender fundus firm at umbilicus and NT Musculoskeletal BLE symmetric, nonerythematous, nontender Results & Data ([facility]) Vital Signs (Past 12 Hours) Vital Signs Temp Pulse Resp BP Pulse Ox O2 Del Method 10/03/22 22:55 97.9 F 87 18 106/72 99 Room Air
[2022-10-04] MEDS: METOPROLOL SUCC 50MG EXT REL TAB PO SCH (09:08)
[2022-10-04] MEDS: DOCUSATE SODIUM 100 MG CAP PO SCH (09:09)
[2022-10-04] MEDS: PRENATAL VITAMIN 1 TAB PO SCH (09:09)
== END 2022-10-04 12:05 | disposition home or self-care (01) | DRG 807 ==
LOC: 4S1 13:31 → 4E2 10-03 02:51